=== PATIENT | female | born 1945 | race Two or more races ===

== ENCOUNTER 2023-10-05 11:22 | Outpatient (CLI) | payer OTHER | END 2023-10-05 11:24 | disposition home or self-care (01) | LOC: NUCLEAR 11:22 | DX: I73.9 Peripheral vascular disease, unspecified (principal) ==

== ENCOUNTER 2024-03-19 11:15 | Inpatient (IN) | payer OTHER ==
[~2024-03-19] VITALS: Ht 160 cm; Wt 63.5 kg
[2024-03-19] MEDS ORDERED: RESTORIL30 M1 (14:55)
[2024-03-19] MEDS ORDERED: SYNTHROID88 MCG (14:56)
[2024-03-19] MEDS ORDERED: [UNRECOGNIZED DRUG - OTHER] (14:56)
[2024-03-19] MEDS ORDERED: CRESTOR5 MG (14:57)
[2024-03-19] MEDS ORDERED: ZOLOFT25 MG (14:57)
[2024-03-19] MEDS ORDERED: LIALDA1.2 GM (14:58)
[2024-03-19] MEDS ORDERED: METFORMIN HCL500 M3 (14:58)
[2024-03-19] MEDS ORDERED: RESTASIS1 EACH (14:58)
[2024-03-19] MEDS ORDERED: [UNRECOGNIZED DRUG - OTHER] (14:59)
[2024-03-26] MEDS ORDERED: DEXTROSE 50 % IN WATER 0.5 G/ML DISP.SYRIN IV PRN (13:15)
[2024-03-26] MEDS ORDERED: MORPHINE SULFATE 4 MG/ML CARTRIDGE IV PRN (13:15)
[2024-03-26] MEDS ORDERED: OxyCODONE HCL 5 MG TABLET (ROXICODONE) PO PRN (13:15)
[2024-03-26] MEDS ORDERED: 0.9 % SODIUM CHLORIDE 1,000 ML IV SCH (13:15)
[2024-03-26] MEDS ORDERED: ONDANSETRON HCL 2 MG/ML VIAL IV PRN (13:15)
[2024-03-26] MEDS ORDERED: levoFLOXacin IN DEXTROSE 5 % 5 MG/ML PIGGYBAG IV ONE (13:45)
[2024-03-26] MEDS ORDERED: LIDOCAINE HCL 1%/EPINEPHRINE 20ML VIAL IJ ONE (13:45)
[2024-03-26] MEDS ORDERED: METRONIDAZOLE/SODIUM CHLORIDE 500 MG/100 ML PIGGYBACK IV ONE (13:45)
[2024-03-26] MEDS ORDERED: BUPIVACAINE HCL 30 ML VIAL IJ ONE (13:45)
[2024-03-26] MEDS ORDERED: ACETAMINOPHEN 500 MG GEL..CAP PO SCH (14:00)
[2024-03-26] MEDS ORDERED: POLYETHYLENE GLYCOL 3350 17 GM BLIST.PACK PO SCH (17:00)
[2024-03-26] MEDS ORDERED: HYOSCYAMINE SULFATE 0.125 MG TAB.SUBL SL SCH (17:00)
[2024-03-26] MEDS ORDERED: METRONIDAZOLE/SODIUM CHLORIDE 500 MG/100 ML PIGGYBACK IV SCH (17:00)
[2024-03-26] MEDS ORDERED: GABAPENTIN 300 MG CAPSULE PO SCH (17:00)
[2024-03-26 19:58] LABS: HEMATOCRIT 40.2 % (36.0-45.00); HEMOGLOBIN 13.8 g/dL (12.0-15.00); MEAN CORPUSCULAR HEMOGLOBIN 30.1 pg (27.00-32.0); MEAN CORPUSCULAR HGB CONC 34.2 g/dl (32.0-36.0); PLATELET COUNT 289 K/uL (150-450); RED BLOOD COUNT 4.57 M/uL (4.00-6.00); RED CELL DISTRIBUTION WIDTH 14.7 % (11.5-14.5)
[2024-03-26 20:19] LABS: ALBUMIN 3.4 gm/dL (3.4-5.0); CALCIUM 8.9 mg/dL (8.5-10.1); CREATININE SERUM 0.67 mg/dL (0.55-1.02); GFR 85.35; MAGNESIUM 1.8 mg/dL (1.8-2.4); PHOSPHOROUS 3.4 mg/dL (2.5-4.9); POTASSIUM 4.94 mEq/L (3.5-5.1)
[2024-03-26] MEDS ORDERED: FAMOTIDINE/PF 20 MG/2 ML VIAL IV PUSH SCH (21:00)
[2024-03-26] MEDS ORDERED: TEMAZEPAM 15 MG CAPSULE PO SCH (21:00)
[2024-03-27] MEDS ORDERED: LEVOTHYROXINE SODIUM 88 MCG TABLET PO SCH ×2 (06:00)
[2024-03-27 06:08] LABS: HEMATOCRIT 39.5 % (36.0-45.00); HEMOGLOBIN 13.3 g/dL (12.0-15.00); MEAN CELL VOLUME 87.8 fL (80.00-100.00); MEAN CORPUSCULAR HEMOGLOBIN 29.5 pg (27.00-32.0); MEAN CORPUSCULAR HGB CONC 33.6 g/dl (32.0-36.0); PLATELET COUNT 308 K/uL (150-450); RED CELL DISTRIBUTION WIDTH 14.6 % (11.5-14.5)
[2024-03-27 06:41] LABS: ALBUMIN 3.1 gm/dL (3.4-5.0); CALCIUM 8.8 mg/dL (8.5-10.1); CREATININE SERUM 0.67 mg/dL (0.55-1.02); GFR 85.35; MAGNESIUM 1.7 mg/dL (1.8-2.4); PHOSPHOROUS 3.3 mg/dL (2.5-4.9); POTASSIUM 4.35 mEq/L (3.5-5.1)
[2024-03-27] MEDS ORDERED: SERTRALINE HCL 25 MG TABLET PO SCH (09:00)
[2024-03-27] MEDS ORDERED: ENOXAPARIN SODIUM 40 MG/0.4 ML SYRINGE SUBCUTANEO SCH (17:00)
[2024-03-28] MEDS ORDERED: ENOXAPARIN SODIUM 40 MG/0.4 ML SYRINGE SUBCUTANEO SCH (09:00)
[2024-03-29] MEDS ORDERED: PEPCID AC20 MG PO (12:05)
[2024-03-29] MEDS ORDERED: TRAM1TAB98 PO (12:05)
== END 2024-03-29 14:14 | disposition home or self-care (01) | DRG 330 ==
LOC: SURH 03-26 08:30 → SURG 03-26 09:23 → O/R 03-26 09:23 → SURH 03-26 11:15 → SURG 03-26 19:00
PROVIDERS: ADMIT Surgery; ATTEND Surgery
PROC: 0DBP4ZZ Excision of Rectum, Percutaneous Endoscopic Approach (ICD-10-PCS; 2024-03-26)
PROC: 0DTN4ZZ Resection of Sigmoid Colon, Percutaneous Endoscopic Approach (ICD-10-PCS; 2024-03-26)
PROC: 0DBU4ZZ Excision of Omentum, Percutaneous Endoscopic Approach (ICD-10-PCS; 2024-03-26)
PROC: 0DQ84ZZ Repair Small Intestine, Percutaneous Endoscopic Approach (ICD-10-PCS; principal; 2024-03-26 08:30)
DX: K57.20 Diverticulitis of large intestine with perforation and abscess without bleeding (principal); K91.71 Accidental puncture and laceration of a digestive system organ or structure during a digestive system procedure; R10.32 Left lower quadrant pain; K64.2 Third degree hemorrhoids

== ENCOUNTER 2024-04-03 12:08 | Inpatient (IN) | payer OTHER ==
[~2024-04-03] VITALS: Ht 160 cm; Wt 63.5 kg
[~2024-04-03 12:08] MED LIST: CRESTOR5 MG; LIALDA1.2 GM; METFORMIN HCL500 M3; PEPCID AC20 MG PO; RESTASIS1 EACH; RESTORIL30 M1; SYNTHROID88 MCG; TRAM1TAB98 PO; ZOLOFT25 MG; [UNRECOGNIZED DRUG - OTHER]; [UNRECOGNIZED DRUG - OTHER]
[2024-04-03] MEDS ORDERED: RINGERS SOLUTION,LACTATED 1,000 ML IV STA (14:37)
[2024-04-03] MEDS ORDERED: KETOROLAC TROMETHAMINE 60 MG VIAL IM ONE ×2 (14:45→14:48)
[2024-04-03] MEDS ORDERED: ONDANSETRON HCL 2 MG/ML VIAL ONE (15:22)
[2024-04-03] MEDS ORDERED: ONDANSETRON HCL 2 MG/ML VIAL IV ONE (15:30)
[2024-04-03 15:52] LABS: HEMATOCRIT 36.2 % (36.0-45.00); HEMOGLOBIN 12.3 g/dL (12.0-15.00); MEAN CELL VOLUME 86.3 fL (80.00-100.00); MEAN CORPUSCULAR HEMOGLOBIN 29.3 pg (27.00-32.0); PLATELET COUNT 615 K/uL (150-450); RED CELL DISTRIBUTION WIDTH 14.9 % (11.5-14.5)
[2024-04-03 16:39] LABS: URINE APPEARANCE Turbid; URINE BILIRRUBIN Negative (NEGATIVE); URINE BLOOD Negative; URINE COLOR Yellow; URINE GLUCOSE Negative (NEGATIVE); URINE LEUKOCYTE Negative; URINE NITRATE Negative; URINE PROTEIN 30 (NEGATIVE); URINE UROBILINOGEN 0.2 E.U./dl
[2024-04-03 16:44] LABS: URINE BACTERIA 25.1 uL (0.0-1933); URINE EPITHELIAL CELLS 2.3 uL (0.0-38.8); URINE RBC 13.1 uL (0.0-20.8); URINE WBC 7.8 uL (0.0-23.2)
[2024-04-03 17:20] LABS: ALBUMIN 2.8 gm/dL (3.4-5.0); BILIRUBIN TOTAL 0.47 mg/dL (0.3-1.2); BILIRUBIN,CONJUGATED 0.21 mg/dL (0.0-0.2); BILIRUBIN,UNCONJUGATED 0.26 mg/dL (0.0-0.6); CALCIUM 9.9 mg/dL (8.5-10.1); CREATININE SERUM 0.53 mg/dL (0.55-1.02); GFR 111.86; GLOBULINA 4.6 G/DL (2.4-3.5); POTASSIUM 4.21 mEq/L (3.5-5.1); TOTAL PROTEIN 7.4 gm/dL (6.4-8.2)
[2024-04-03] MEDS ORDERED: PROMETHAZINE HCL 50 MG/ML AMPUL IM ONE ×2 (17:20→17:30)
[2024-04-03] MEDS ORDERED: METRONIDAZOLE/SODIUM CHLORIDE 500 MG/100 ML PIGGYBACK IV SCH (19:51)
[2024-04-03] MEDS ORDERED: PANTOPRAZOLE SODIUM 40 MG/VIAL VIAL IV SCH (19:51)
[2024-04-03] MEDS ORDERED: GABAPENTIN 300 MG CAPSULE PO SCH (19:53)
[2024-04-03] MEDS ORDERED: POLYETHYLENE GLYCOL 3350 17 GM BLIST.PACK PO SCH (19:53)
[2024-04-03] MEDS ORDERED: HYOSCYAMINE SULFATE 0.125 MG TAB.SUBL SL SCH (19:53)
[2024-04-03] MEDS ORDERED: RINGERS SOLUTION,LACTATED 1,000 ML IV SCH (20:00)
[2024-04-03] MEDS ORDERED: ONDANSETRON HCL 2 MG/ML VIAL IV PRN (20:00)
[2024-04-03] MEDS ORDERED: MORPHINE SULFATE 4 MG/ML CARTRIDGE IV PRN (20:00)
[2024-04-03] MEDS ORDERED: OxyCODONE HCL 5 MG TABLET (ROXICODONE) PO PRN (20:00)
[2024-04-03] MEDS ORDERED: ACETAMINOPHEN 500 MG GEL..CAP PO SCH (20:00)
[2024-04-03] MEDS ORDERED: DEXTROSE 50 % IN WATER 0.5 G/ML DISP.SYRIN IV PRN (20:00)
[2024-04-03] MEDS ORDERED: HYOSCYAMINE SULFATE 0.125 MG TAB.SUBL ONE (20:25)
[2024-04-03] MEDS ORDERED: METRONIDAZOLE/SODIUM CHLORIDE 500 MG/100 ML PIGGYBACK IV ONE (20:25)
[2024-04-03 20:59] LABS: ALBUMIN 2.7 gm/dL (3.4-5.0); CALCIUM 9.7 mg/dL (8.5-10.1); CREATININE SERUM 0.49 mg/dL (0.55-1.02); GFR 122.46; MAGNESIUM 1.8 mg/dL (1.8-2.4); PHOSPHOROUS 2.7 mg/dL (2.5-4.9); POTASSIUM 3.78 mEq/L (3.5-5.1)
[2024-04-03] MEDS ORDERED: CIPROFLOXACIN IN 5 % DEXTROSE 400 MG/200 ML PIGGYBAG IV SCH (21:00)
[2024-04-03] MEDS ORDERED: CIPROFLOXACIN IN 5 % DEXTROSE 400 MG/200 ML PIGGYBAG IV ONE (21:39)
[2024-04-04] MEDS ORDERED: METRONIDAZOLE/SODIUM CHLORIDE 500 MG/100 ML PIGGYBACK IV ONE (00:25)
[2024-04-04 08:56] LABS: HEMATOCRIT 34.4 % (36.0-45.00); HEMOGLOBIN 11.6 g/dL (12.0-15.00); MEAN CELL VOLUME 86.7 fL (80.00-100.00); MEAN CORPUSCULAR HEMOGLOBIN 29.2 pg (27.00-32.0); MEAN CORPUSCULAR HGB CONC 33.7 g/dl (32.0-36.0); PLATELET COUNT 610 K/uL (150-450); RED BLOOD COUNT 3.97 M/uL (4.00-6.00); RED CELL DISTRIBUTION WIDTH 14.9 % (11.5-14.5)
[2024-04-04 09:45] LABS: AMYLASE 30 U/L (25-115); LIPASE 21 U/L (13-75)
[2024-04-04 09:48] LABS: ALBUMIN 2.7 gm/dL (3.4-5.0); CALCIUM 9.4 mg/dL (8.5-10.1); CREATININE SERUM 0.62 mg/dL (0.55-1.02); GFR 93.34; MAGNESIUM 2.1 mg/dL (1.8-2.4); PHOSPHOROUS 3.3 mg/dL (2.5-4.9); POTASSIUM 4.4 mEq/L (3.5-5.1)
[2024-04-04] MEDS ORDERED: PANTOPRAZOLE SODIUM 40 MG/VIAL VIAL IV SCH (12:00)
[2024-04-04] MEDS ORDERED: ENALAPRILAT DIHYDRATE 1.25 MG/ML VIAL IV PRN (14:00)
[2024-04-04] MEDS ORDERED: PANTOPRAZOLE SODIUM 80 MG in 0.9 % SODIUM CHLORIDE 100 ML IV SCH (15:30)
[2024-04-04] MEDS ORDERED: METRONIDAZOLE/SODIUM CHLORIDE 100 ML IV SCH (17:00)
[2024-04-04] MEDS ORDERED: TEMAZEPAM 15 MG CAPSULE PO SCH (21:00)
[2024-04-04] MEDS ORDERED: CIPROFLOXACIN IN 5 % DEXTROSE 200 ML IV SCH (21:00)
[2024-04-05] MEDS ORDERED: LEVOTHYROXINE SODIUM 88 MCG TABLET PO SCH (06:00)
[2024-04-05] MEDS ORDERED: ENOXAPARIN SODIUM 40 MG/0.4 ML SYRINGE SUBCUTANEO SCH ×2 (09:00→17:00)
[2024-04-05 10:34] LABS: HEMATOCRIT 38.6 % (36.0-45.00); MEAN CELL VOLUME 86.1 fL (80.00-100.00); MEAN CORPUSCULAR HGB CONC 33.7 g/dl (32.0-36.0); PLATELET COUNT 730 K/uL (150-450); RED BLOOD COUNT 4.48 M/uL (4.00-6.00)
[2024-04-05 11:01] LABS: BILIRUBIN TOTAL 0.57 mg/dL (0.3-1.2); C-REACTIVE PROTEIN 2.21 MG/DL (0.00-0.29); CALCIUM 9.3 mg/dL (8.5-10.1); CREATININE SERUM 0.62 mg/dL (0.55-1.02); GFR 93.34; GLOBULINA 3.9 G/DL (2.4-3.5); MAGNESIUM 1.9 mg/dL (1.8-2.4); PHOSPHOROUS 2.8 mg/dL (2.5-4.9); POTASSIUM 3.99 mEq/L (3.5-5.1); TOTAL PROTEIN 6.9 gm/dL (6.4-8.2)
[2024-04-05] MEDS ORDERED: PROMETHAZINE HCL 25 MG/ML AMPUL IV PRN (15:15)
[2024-04-05] MEDS ORDERED: ONDANSETRON HCL 2 MG/ML VIAL IV SCH (18:00)
[2024-04-05] MEDS ORDERED: MEROPENEM 500 MG/VIAL VIAL IV SCH (18:00)
[2024-04-05] MEDS ORDERED: VANCOMYCIN HCL 1,000 MG VIAL IV SCH (21:00)
[2024-04-06] MEDS ORDERED: ENOXAPARIN SODIUM 40 MG/0.4 ML SYRINGE SUBCUTANEO SCH (09:00)
[2024-04-06 10:11] LABS: HEMOGLOBIN 11.9 g/dL (12.0-15.00); MEAN CORPUSCULAR HGB CONC 34.1 g/dl (32.0-36.0); PLATELET COUNT 690 K/uL (150-450); RED BLOOD COUNT 4.11 M/uL (4.00-6.00); RED CELL DISTRIBUTION WIDTH 15.4 % (11.5-14.5)
[2024-04-06] MEDS ORDERED: MIDAZOLAM HCL 2 MG/2 ML VIAL IV STA (13:07)
[2024-04-06] MEDS ORDERED: MIDAZOLAM HCL 2 MG/2 ML VIAL IV PUSH ONE (14:30)
[2024-04-06] MEDS ORDERED: fentaNYL CITRATE 50 MCG/ML AMPUL IV PUSH ONE (14:30)
[2024-04-08] MEDS ORDERED: SODIUM CL 0.9% 100 ML IV.SOLN IV ONE ×2 (00:47→00:48)
[2024-04-09 06:55] LABS: HEMATOCRIT 34.9 % (36.0-45.00); HEMOGLOBIN 11.9 g/dL (12.0-15.00); MEAN CELL VOLUME 86.9 fL (80.00-100.00); MEAN CORPUSCULAR HEMOGLOBIN 29.6 pg (27.00-32.0); MEAN CORPUSCULAR HGB CONC 34.1 g/dl (32.0-36.0); PLATELET COUNT 606 K/uL (150-450); RED BLOOD COUNT 4.02 M/uL (4.00-6.00); RED CELL DISTRIBUTION WIDTH 15.1 % (11.5-14.5)
[2024-04-09 07:24] LABS: ALBUMIN 2.6 gm/dL (3.4-5.0); BILIRUBIN TOTAL 0.65 mg/dL (0.3-1.2); CALCIUM 8.5 mg/dL (8.5-10.1); CREATININE SERUM 0.64 mg/dL (0.55-1.02); GFR 89.98; GLOBULINA 2.9 G/DL (2.4-3.5); MAGNESIUM 1.8 mg/dL (1.8-2.4); PHOSPHOROUS 2.5 mg/dL (2.5-4.9); POTASSIUM 3.31 mEq/L (3.5-5.1); TOTAL PROTEIN 5.5 gm/dL (6.4-8.2)
[2024-04-09 07:37] LABS: C-REACTIVE PROTEIN 1.48 MG/DL (0.00-0.29)
[2024-04-09] MEDS ORDERED: LACTOBACILLUS ACIDOPHILUS 1 CAP CAP PO SCH (17:00)
[2024-04-09] MEDS ORDERED: ONDANSETRON 4 MG TAB.RAPDIS PO PRN (20:15)
[2024-04-09] MEDS ORDERED: POTASSIUM CHLORIDE/NACL 0.9% 1,000 ML IV ONE (20:45)
[2024-04-09] MEDS ORDERED: POTASSIUM CHLORIDE/NACL 0.9% 20 MEQ/1,000 ML PIGGYBAG IV ONE (22:04)
[2024-04-09] MEDS ORDERED: POTASSIUM CHLORIDE 20MEQ/100ML H2O PB IV ONE (22:15)
[2024-04-11] MEDS ORDERED: DIATRIZOATE MEGLUMINE, SODIUM 30 ML BOTTLE PO NR (05:00)
== END 2024-04-12 14:54 | disposition home or self-care (01) | DRG 862 ==
LOC: ER 12:09 → SURH 21:09 → SEC-K 21:09 → SURH 21:14 → SEC-K 21:18 → SURH 21:29 → SEC-K 21:33 → SURH 04-04 00:44
PROVIDERS: General Practice; Internal Medicine Infectious Disease; Specialist; ADMIT Surgery; ATTEND Surgery
PROC: BW21ZZZ Computerized Tomography (CT Scan) of Abdomen and Pelvis (ICD-10-PCS; 2024-04-03)
PROC: 0DJ08ZZ Inspection of Upper Intestinal Tract, Via Natural or Artificial Opening Endoscopic (ICD-10-PCS; principal; 2024-04-06)
PROC: 0W9G30Z Drainage of Peritoneal Cavity with Drainage Device, Percutaneous Approach (ICD-10-PCS; 2024-04-06)
PROC: 02HV33Z Insertion of Infusion Device into Superior Vena Cava, Percutaneous Approach (ICD-10-PCS; 2024-04-06)
PROC: BW21YZZ Computerized Tomography (CT Scan) of Abdomen and Pelvis using Other Contrast (ICD-10-PCS; 2024-04-11)
DX: T81.43XA Infection following a procedure, organ and space surgical site, initial encounter (principal); K65.1 Peritoneal abscess; K44.9 Diaphragmatic hernia without obstruction or gangrene; I10 Essential (primary) hypertension; E78.5 Hyperlipidemia, unspecified; E03.9 Hypothyroidism, unspecified; G47.33 Obstructive sleep apnea (adult) (pediatric)